=== PATIENT | male | born 1995 | race Caucasian/White ===

== ENCOUNTER 2021-11-29 07:56 | Outpatient (CLI) | payer OTHER | END 2021-11-29 07:57 | disposition critical access hospital (66) | LOC: EMS 07:56 | DX: S69.92XA Unspecified injury of left wrist, hand and finger(s), initial encounter (principal); V19.9XXA Pedal cyclist (driver) (passenger) injured in unspecified traffic accident, initial encounter; Y93.55 Activity, bike riding; Y92.410 Unspecified street and highway as the place of occurrence of the external cause | CPT/HCPCS: A0425; A0429 ==

== ENCOUNTER 2021-11-29 08:11 | Emergency (ER) | payer OTHER ==
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
[2021-11-29] MEDS ORDERED: HYDROmorphone 1 MG/ML CARPUJECT IM STA ×2 (08:29→09:42)
[2021-11-29] MEDS ORDERED: KETOROLAC 30 MG/ML VIAL IM STA (08:29)
--- NOTE | 2021-11-29 08:50 | XRAY Report ---
PROCEDURE: Wrist 3 View LT INDICATIONS: Trauma TECHNIQUE: 3 views of the wrist were acquired. COMPARISON: None FINDINGS: Bones: There is a comminuted, mildly impacted, intra-articular fracture of the distal left radius wit h nondisplaced fracture of the distal ulnar styloid tip. No definite scaphoid fracture identified. No suspicious bony lesions. Soft tissues: No suspicious soft tissue calcifications. Soft tissue swelling of the left wrist. IMPRESSION: Comminuted, mildly impacted intra-articular fracture of the distal left radius. Nondisplaced fracture of the distal ulnar styloid tip. Reviewed by: Cornelio Malave MD on 11/29/2021 8:48 AM PDT Approved by: Cornelio Malave MD on 11/29/2021 8:48 AM PDT Station ID: [id number]
[2021-11-29 09:37] VITALS: BP 121/57
== END 2021-11-29 10:35 | disposition home or self-care (01) ==
LOC: ED 08:11
DX: S62.102A Fracture of unspecified carpal bone, left wrist, initial encounter for closed fracture (principal); S40.811A Abrasion of right upper arm, initial encounter; V18.2XXA Unspecified pedal cyclist injured in noncollision transport accident in nontraffic accident, initial encounter
CPT/HCPCS: 29105; 73110; 96372; 99282; 99283; J1170